=== PATIENT | male | born 1965 | race Caucasian/White ===

== ENCOUNTER 2020-12-11 01:37 | Day surgery (SDC) | payer BC, SELFPAY ==
[2020-11-22 14:24] VITALS: BMI 32.0
[2020-12-11 06:47] VITALS: BP 124/87; PULSE 73; RESP 16; TEMP 36.7; O2SAT 97; BMI 32.3
[2020-12-11] MEDS: LACTATED RINGERS 1,000 ML 150 ML IV CONT (06:57)
--- NOTE | 2020-12-11 07:26 | WPDANESEPPF ---
Anes - Initial Pre Proc Eval Procedure: Operation Date: 12/11/20 08:00 Proposed Procedures p Screening Colonoscopy - Geovanny Pop MD Date/Time: 12/11/20 07:26 Surgeon: Geovanny Pop MD Pre Op Diagnosis: hx colon polyps, family hx colon ca, Patient Data Age: 55 Gender: M Height: 1.83 m Weight: 108.1 kg Last Vital Signs Temp 36.7 C 12/11/20 06:47 Pulse 73 12/11/20 06:47 Resp 16 12/11/20 06:47 BP 124/87 12/11/20 06:47 Pulse Ox 97 12/11/20 06:47 Allergies Allergy/AdvReac Type Severity Reaction Status Date / Time No Known Allergies Allergy Verified 12/11/20 06:46 Home Medications Medication Instructions Recorded Confirmed Type meclizine 25 mg tablet 25 mg PO BID PRN #12 tablet 11/28/19 12/11/20 Rx allopurinol 300 mg tablet 300 mg PO DAILY #90 tablet 12/04/20 12/11/20 Rx indomethacin 50 mg capsule 50 mg PO TID #270 cap 12/04/20 12/11/20 Rx Patient hx anesthesia problems: none Family hx anesthesia problems: none Results Review: All pre-operative results and documents have been reviewed as part of the pre-operative evaluation. [facility] Family History Family History Mother Family history of elevated blood lipids Father Family history of heart disease in male family member before age 55 Social History Social History Smoking status: Never smoker Tobacco type: e-cigarettes/vaping Second hand tobacco smoke exposure: No Alcohol intake: current Drinks per week: 5 Substance use: never Substance use type: does not use Living arrangements: with family Gender identity (if verbalized by the patient): Male Spiritual care concerns: No Anes - Eval Final PreProcedure Day of Procedure 12/11/20 07:26 Patient weight: obese Heart: regular rate and rhythm Lungs: clear to auscultation Airway: Mallampati scale class II Neurological: alert and oriented Last oral intake: >/= 8 hours ASA classification: II Anesthetic plan: proceed Anesthesia type and monitoring: general GIVS and standard monitoring Results Review: All pre-operative results and documents have been reviewed as part of the pre-operative evaluation. Informed Consent: The patient's anesthetic plan and its attendant risks and benefits were discussed with the patient/family/POA. Questions were solicited and answers provided to the satisfaction of the patient/family/POA.
--- NOTE | 2020-12-11 07:27 | P.CONGI_ITS ---
Assessment and Plan Assessment and plan (1) History of colon polyps: Code(s): Z86.010 - Personal history of colonic polyps Status: Acute Assessment and Plan: Patient has had colon polyps on previous colonoscopies. Additionally both mother and father have had colon polyps. Plan is for surveillance colonoscopies at in (2) Family history of colon cancer: Code(s): Z80.0 - Family history of malignant neoplasm of digestive organs Status: Acute Assessment and Plan: Family history is significant for an uncle with colon cancer at a young age. Screening colonoscopy will be performed now at intervals in the future. GI Consult Note Consult date/time: 12/11/20 07:27 HPI: Faustino Islas is a 55 year old male Presents for screening colonoscopy. Patient's has a history of colon polyps in the past. Most recently 2014. Patient's family history is significant that her his uncle had colon cancer at a young age. Both mother and father have had colon polyps as well. Patient presents today for screening colonoscopy. Patient reports that his current weight appetite bowel movements are normal. He denies abdominal pain. He has had no bleeding. Review of Systems Review of Systems: All systems reviewed & are unremarkable except as noted in HPI and below PMFSH Family History Family History Mother Family history of elevated blood lipids Father Family history of heart disease in male family member before age 55 Social History Social History Smoking status: Never smoker Tobacco type: e-cigarettes/vaping Second hand tobacco smoke exposure: No Alcohol intake: current Drinks per week: 5 Substance use: never Substance use type: does not use Living arrangements: with family Gender identity (if verbalized by the patient): Male Spiritual care concerns: No Meds Home Medications and Allergies Home Medications Medication Instructions Recorded Confirmed Type meclizine 25 mg tablet 25 mg PO BID PRN #12 tablet 11/28/19 12/11/20 Rx allopurinol 300 mg tablet 300 mg PO DAILY #90 tablet 12/04/20 12/11/20 Rx indomethacin 50 mg capsule 50 mg PO TID #270 cap 12/04/20 12/11/20 Rx Allergies Allergy/AdvReac Type Severity Reaction Status Date / Time No Known Allergies Allergy Verified 12/11/20 06:46 Vital Signs Vital Signs - 24 hr 12/11/20 06:47 Temperature 98.1 F Pulse Rate 73 Respiratory Rate 16 Blood Pressure 124/87 Pulse Oximetry 97 Exam Narrative: Physical exam reveals patient to be alert. Vital signs stable. HEENT exam is unremarkable. Patient is anicteric. Lungs are clear to a uscultation and percussion. Heart is without murmur or extra sounds. Abdominal exam bowel sounds are present soft nontender with no organomegaly. Digital external rectal exam is normal.
[2020-12-11 08:11] VITALS: BP 105/68; PULSE 63; RESP 22; O2SAT 96
[2020-12-11 08:21] VITALS: BP 108/74; PULSE 71; RESP 20; O2SAT 98
[2020-12-11 08:31] VITALS: BP 111/78; PULSE 56; RESP 19; O2SAT 100
== END 2020-12-11 08:46 | disposition home or self-care (01) ==
PROVIDERS: PCP Family Medicine; Visit Provider Internal Medicine Gastroenterology
PROC: 0DJD8ZZ Inspection of Lower Intestinal Tract, Via Natural or Artificial Opening Endoscopic (ICD-10-PCS; CPT 45378; principal; 2020-12-11 08:00)
DX: Z12.11 Encounter for screening for malignant neoplasm of colon (principal); Z86.010 Personal history of colon polyps; Z80.0 Family history of malignant neoplasm of digestive organs; F17.290 Nicotine dependence, other tobacco product, uncomplicated
CPT/HCPCS: 45378; J2704; J7120

== ENCOUNTER 2024-08-24 16:55 | Outpatient (CLI) | payer BC, SELFPAY ==
--- NOTE | ~2024-08-24 | XR_ITS ---
HISTORY: M54.6 - Pain in thoracic spine RIGHT SIDE, RADIATES COMPARISON: None TECHNIQUE: 2 views of the thoracic spine were performed. FINDINGS: No acute compression fracture is present. Bone mineralization is age-appropriate. Trace degenerative disease is identified with osteophyte formation and disc space narrowing. IMPRESSION: Degenerative disease, without acute fracture. Reviewed, dictated and finalized at location A.
--- OUTSIDE RECORDS SUMMARY | 2024-08-24 16:58 | XMS_ITS | Referral Summary ---
Author Organization [facility] Address [address] [place] [address] Care Team Providers Care Jacquard Loom Carpet Weaver Name Role Phone Fabrizio Mejia MD Primary Care Provider Allergies No known active allergies Medications allopurinol (ZYLOPRIM) 300 mg tablet Take 300 mg by mouth daily 1 05/18/2018 Active indomethacin (INDOCIN) 50 mg capsule Take 50 mg by mouth 3 (three) times a day as needed 08/16/2018 Active cetirizine (ZyrTEC) 10 mg tablet Take 10 mg by mouth daily Active Active Problems Problem Noted Date Diagnosed Date Rupture of left quadriceps tendon 06/03/2018 Overview (06/03/2018): Added automatically from request for surgery [id number] Social History Tobacco Use Types Packs/Day Years Used Date Smoking Tobacco: Never Smokeless Tobacco: Never Alcohol Use Standard Drinks/Week Comments Yes 0 (1 standard drink = 0.6 oz pur e alcohol) Socially Sex and Gender Information Value Date Recorded Sex Assigned at Not on file 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 Gender Identity Not on file Sexual Orientation Not on file Last Filed Vital Signs Vital Sign Reading Time Taken Comments Blood Pressure 126/81 07/24/2020 6:30 PM CDT Pulse 71 07/24/2020 6:40 PM CDT Temperature 37.2 C (98.9 F) 07/24/2020 12:29 PM CDT Respiratory Rate 18 07/24/2020 12:29 PM CDT Oxygen Saturation 97% 07/24/2020 6:40 PM CDT Inhaled Oxygen Concentration - - Weight 108 kg (238 lb) 07/24/2020 12:29 PM CDT Height 182.9 cm (6') 11/22/2018 1:10 PM CDT Body Mass Index 32.28 11/22/2018 1:10 PM CDT Plan of Treatment Not on file Insurance [employer] [place] [employer] [place] [facility] Care Teams Jacquard Loom Carpet Weaver Relationship Specialty Start Date End Date Fabrizio Mejia MD [address] [facility] [address] [place], [place] [id number] PCP - General Family Medicine 06/14/18
--- OUTSIDE RECORDS SUMMARY | 2024-08-24 16:58 | XMS_ITS | Clinical Summary ---
Author Organization [facility] Address [address] [place] [address] Care Team Providers Care Wireless Development Manager Name Role Phone Fabrizio Mejia MD Primary [...] (06/03/2018): Added automatically from request for surgery [id number] Surgical History Surgery Date Site/Laterality Comments KNEE SURGERY 05/24/1998 - 06/22/1998 ACL Medical History Medical History Date Comments Gout High cholesterol Family History Medical History Relation Name Comments Arthritis Neg Hx Social History Tobacco Use Types Packs/Day Years Used Date Smoking Tobacco: Never Smokeless Tobacco: Never Alcohol Use Standard Drinks/Week Comments Yes 0 (1 standard drink = 0.6 oz pur e alcohol) Socially Sex and Gender Information Value Date Recorded Sex Assigned at Not on file 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
--- OUTSIDE RECORDS SUMMARY | 2024-08-24 16:58 | XMS_ITS | Clinical Summary ---
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 Gender Identity Not on file Sexual Orientation Not on file Plan of Treatment Health Maintenance Due Date Last Done Comments Hepatitis C Virus (HCV) Screening 1965 TdaP Immunization 1965 Hepatitis B Immunization (1 of 3 - 19+ 3-dose series) 02/01/1984 Colonoscopy 2010 Colorectal Cancer Screening 2010 Cologuard 2015 Immunochemical Fecal Occult Blood 2015 Pneumococcal Immunization (5 0+ years) (1 of 1 - PCV) 2015 Zoster Immunization (1 of 2) 2015 PSA Discussion 02/01/2020 Influenza Immunization (#1) 2023 SARS-COV-2 Immunization (2023- season) 2023 02/06/2021, 06/06/2020, 05/09/2020 Respiratory Syncytial Virus (RSV) Immunization (Adult) (1 - 1-dose 75+ series) 02/01/2040 Meningococcal Immunization (ACWY) Aged Out No longer eligible b ased on patient's age to complete this topic Pneumococcal Immunization Combined Aged Out No longer eligible b ased on patient's age to complete this topic Rotavirus Immunization Aged Out No lo nger eligible based on patient's age to complete this topic
--- OUTSIDE RECORDS SUMMARY | 2024-08-24 16:58 | XMS_ITS | Continuity of Care Document ---
Author Organization [facility] Address [address] [place] [address] [address] [place] [address] Phone Care Team Providers Care Combatant Diver Qualified Name Role Phone Ciera PT, VINCENZO, Felix Unavailable Unavailable Procedures Procedure Date Therapeutic Activities Therapeutic Exercise Manual Therapy Therapeutic Exercise Therapeutic Activities Manual Therapy Progress Note Therapeutic Exercise Therapeutic Activities Manual Therapy Therapeutic Exercise Neuromuscular Re-Ed Therapeutic Activities Manual Therapy Therapeutic Exercise Therapeutic Activities Neuromuscular Re-Ed Manual Therapy Therapeutic Exercise Therapeutic Activities Neuromuscular Re-Ed Manual Therapy Progress Note Therapeutic Activities Therapeutic Exercise Neuromuscular Re-Ed Therapeutic Exercise Therapeutic Activities Neuromuscular Re-Ed Therapeutic Exercise Therapeutic Activities Neuromuscular Re-Ed Therapeutic Exercise Neuromuscular Re-Ed Therapeutic Activities Manual Therapy Therapeutic Exercise Therapeutic Activities Neuromuscular Re-Ed Manual Therapy Therapeutic Exercise Therapeutic Activities Neuromuscular Re-Ed Manual Therapy Progress Note Therapeutic Exercise Neuromuscular Re-Ed Manual Therapy Therapeutic Exercise Neuromuscular Re-Ed Manual Therapy Progress Note Therapeutic Exercise Manual Therapy Therapeutic Exercise Neuromuscular Re-Ed Manual Therapy Therapeutic Exercise Neuromuscular Re-Ed Manual Therapy Therapeutic Exercise Neuromuscular Re-Ed Manual Therapy Therapeutic Exercise Neuromuscular Re-Ed Manual Therapy Therapeutic Exercise Neuromuscular Re-Ed Manual Therapy PT Re-evaluation Therapeutic Exercise Therapeutic Activities Neuromuscular Re-Ed Manual Therapy Progress Note Therapeutic Exercise Therapeutic Activities Neuromuscular Re-Ed Manual Therapy Therapeutic Exercise Therapeutic Activities Neuromuscular Re-Ed Manual Therapy Therapeutic Exercise Therapeutic Activities Neuromuscular Re-Ed Manual Therapy Therapeutic Exercise Therapeutic Activities Neuromuscular Re-Ed Manual Therapy Therapeutic Exercise Neuromuscular Re-Ed Manual Therapy Therapeutic Exercise Therapeutic Activities Neuromuscular Re-Ed Manual Therapy Therapeutic Exercise Therapeutic Activities Neuromuscular Re-Ed Manual Therapy Therapeutic Exercise Neuromuscular Re-Ed Manual Therapy Therapeutic Exercise Neuromuscular Re-Ed Manual Therapy Therapeutic Exercise Neuromuscular Re-Ed Manual Therapy PT Evaluation Moderate Complexity Neuromuscular Re-Ed Manual Therapy Advance Directives Directive Yes / No Effective Date File Name No Information Encounters Encounter Description Practice Location Reason(s) For Visit Diagnoses Date Provider Providers Copied on Encounter [facility], [place], [place], [id number], tel:[phone] [place] No Information 9 Makler Luke. . [facility], [place], [place], [id number], tel:[phone] [place] No Information 9 Makler Luke. . [facility], [place], [place], [id number], tel:[phone] [place] No Information 9 Makler Luke. . [facility], [place], [place], [id number], [place] tel:[phone] [place] No Information 9 Makler Luke. . [facility], [place], [place], [id number], tel:[phone] [place] No Information 9 Makler Luke. . [facility], [place], [place], [address], tel:[phone] [place] No Information 9 Makler Luke. . [facility], [place], [place], [id number], tel:[phone] [place] No Information 9 Makler Luke. . [facility], [place], [place], [id number], tel:[phone] [place] No Information 9 Makler Luke. . [facility], [place], [id number], [place] tel:[phone] [place] No Information 9 Makler Luke. . [facility], [place], [id number], [place] tel:[phone] [place] No Information 9 Makler Luke. . [facility], [place], [address], [place] tel:[phone] [place] Encounter for other orthopedic aftercareWeak nessStiffness of left knee, not elsewhere classified 9 Makler Luke. . [facility], [place], [place], [address], [place] tel:[phone] [place] Encounter for other orthopedic aftercareWeak nessStiffness of left knee, not elsewhere classified 9 Makler Luke. . [facility], [place], [place], [id number], [place] tel:[phone] [place] Encounter for other orthopedic aftercareWeak nessStiffness of left knee, not elsewhere classified 9 Makler Luke. . [facility], [place], [place], [address], [place] tel:[phone] [place] Encounter for other orthopedic aftercareWeak nessStiffness of left knee, not elsewhere classified 9 Makler Luke. . [facility], [place], [address], [place] tel:[phone] [place] Encounter for other orthopedic aftercareWeak nessStiffness of left knee, not elsewhere classified 9 Makler Luke. . [facility], [place], [place], [id number], [place] tel:[phone] [place] Encounter for other orthopedic aftercareWeak nessStiffness of left knee, not elsewhere classified 9 Ciera Upke. . [facility], [place], [place], [address], [place] tel:[phone] [place] Encounter for other orthopedic aftercareWeak nessStiffness of left knee, not elsewhere classified 9 Ciera Luke. . [facility], [place], [address], [place] tel:[phone] [place] Encounter for other orthopedic aftercareWeak nessStiffness of left knee, not elsewhere classified 9 Long Willingham. . [facility], [place], [place], [address], [place] tel:[phone] [place] Encounter for other orthopedic aftercareWeak nessStiffness of left knee, not elsewhere classified 9 Makler Luke. . [facility], [place], [address], [place] tel:[phone] [place] Encounter for other orthopedic aftercareWeak nessStiffness of left knee, not elsewhere classified 9 Makler Luke. . [facility], [place], [address], [place] tel:[phone] [place] Encounter for other orthopedic aftercareWeak nessStiffness of left knee, not elsewhere classified 9 Makler Luke. . [facility], [place], [id number], [place] tel:[phone] [place] Encounter for other orthopedic aftercareWeak nessStiffness of left knee, not elsewhere classified 9 Makler Luke. . [facility], [place], [place], [address], [place] tel:[phone] [place] Encounter for other orthopedic aftercareWeak nessStiffness of left knee, not elsewhere classified 9 Joseler Luke. . [facility], [place], [address], [place] tel:[phone] [place] Encounter for other orthopedic aftercareWeak nessStiffness of left knee, not elsewhere classified 9 Makler Luke. . [facility], [place], [address], [place] tel:[phone] [place] Encounter for other orthopedic aftercareWeak nessStiffness of left knee, not elsewhere classified 9 Joseler Luke. . [facility], [place], [place], [address], [place] tel:[phone] [place] Encounter for other orthopedic aftercareWeak nessStiffness of left knee, not elsewhere classified 9 Makler Luke. . [facility], [place], [address], [place] tel:[phone] [place] Encounter for other orthopedic aftercareWeak nessStiffness of left knee, not elsewhere classified 9 Makler Luke. . [facility], [place], [address], [place] tel:[phone] [place] Encounter for other orthopedic aftercareWeak nessStiffness of left knee, not elsewhere classified 9 Makler Luke. . [facility], [place], [address], [place] tel:[phone] [place] Encounter for other orthopedic aftercareWeak nessStiffness of left knee, not elsewhere classified 9 Makler Luke. . [facility], [place], [address], [place] tel:[phone] [place] Encounter for other orthopedic aftercareWeak nessStiffness of left knee, not elsewhere classified Apr-3 0 9 Ciera Washington. . [facility], [place], [place], [address], tel:[phone] [place] Encounter for other orthopedic aftercareWeak nessStiffness of left knee, not elsewhere classified May- 9 Ciera [place]. . [facility], [place], [place], [address], tel:[phone] [place] Encounter for other orthopedic aftercareWeak nessStiffness of left knee, not elsewhere classified May- 9 Ciera [place]. . Family History Family Member Type Diagnosis Age At Onset No Information Payers Payer name Insurance type Covered constitution party ID Authoriza titristen(s) [employer] EPO WC SP WC [id number] Social History Type Description Quantity Date Captured Comments Sex Male Smoking Status No Information Chief Complaint And Reason For Visit No Information Reason For Referral Reason For Referral No Information History Of Present Illness Encounter Date Complaint History Of Prese nt Illness No Information Functional Status Date Functional Assessmen t No Information Instructions Date Instruction Additional Infor mation No Information Assessments Type Assessment Date No Information Patient Care Teams Name Effective Dates (start - stop) Status Members No Information
== END 2024-08-24 16:56 | disposition home or self-care (01) ==
PROVIDERS: PCP Family Medicine; Visit Provider Family Medicine
DX: M47.814 Spondylosis without myelopathy or radiculopathy, thoracic region (principal)
CPT/HCPCS: 72070

== ENCOUNTER 2024-09-15 15:06 | Outpatient (CLI) | payer BC, SELFPAY ==
--- NOTE | ~2024-09-15 | CT_ITS ---
CT Scan of the Chest without Contrast: Clinical Indication: Disorder of bone, unspecified Technique: Contiguous sections were acquired throughout the chest without intravenous contrast. Dose reduction technique was used on this scan by utilizing automated exposure control and iterative recon struction technique. The dose-length product (DLP) was 354.84 mGy-cm. Findings: There is no evidence of any significant mediastinal, hilar or axillary lymphadenopathy. Calcified rig ht hilar lymph nodes are present. There is no evidence of pleural or pericardial effusion. The lungs are clear, aside from several calcified granulomas in the right lung.. Images through the upper abdomen reveal no significant abnormalities. There is mild DISH of the thora cic spine. Impression: Mild DISH of the thoracic spine. Evidence of prior granulomatous disease. Reviewed, dictated and finalized at location . Impression: Mild DISH of the thoracic spine. Evidence of prior granulomatous disease.
--- OUTSIDE RECORDS SUMMARY | 2024-09-15 15:15 | XMS_ITS | Clinical Summary ---
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
--- OUTSIDE RECORDS SUMMARY | 2024-09-15 15:15 | XMS_ITS | Clinical Summary ---
Author Organization 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
--- OUTSIDE RECORDS SUMMARY | 2024-09-15 15:15 | XMS_ITS | Referral Summary ---
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
== END 2024-09-15 15:07 | disposition home or self-care (01) ==
PROVIDERS: PCP Family Medicine
DX: M48.14 Ankylosing hyperostosis [Forestier], thoracic region (principal)
CPT/HCPCS: 71250